=== PATIENT | female | born 1955 | race Caucasian/White ===

== ENCOUNTER → 2018-02-12 15:27 | Outpatient (CLI) | payer MEDICARE, SELFPAY ==
[2018-02-12 15:51] LABS: Add Manual Diff / Slide Review NO; Basophils Percent Auto 0.8 % (0-2); Hematocrit 36.2 % (36-46); Hemoglobin 12.1 g/dL (12.0-16.0); Lymphocytes Percent Auto 18.3 % (25-40); Mean Corpuscular HGB Conc 33.5 % (30-36); Mean Corpuscular Hemoglobin 29.7 PG (26-34); Mean Corpuscular Volume 88.8 fL (80-100); Monocytes Percent Auto 7.4 % (3-14); Neutrophils Absolute Auto 5800 /uL (3000-5900); Neutrophils Percent Auto 72.5 % (50-75); Platelet Count 269 X10^3/uL (150-400); Red Blood Cell Count 4.08 X10^6/uL (4.0-5.2); Red Cell Distribution Width 16.4 % (11.6-14.8)
[2018-02-12 16:02] LABS: Hemoglobin A1C% w Est Avg Glu 7.3 % (4.0-6.0)
[2018-02-12 17:18] LABS: BUN Creatinine Ratio 23.6 (6-22); Blood Urea Nitrogen 33 mg/dL (7-17); Calcium 9.2 mg/dL (8.4-10.2); Carbon Dioxide 28 mmol/L (22-32); Chloride 96 mmol/L (98-107); Estimated Glomerular Filt Rate 37.9 mL/min (>60); Glucose 233 mg/dL (80-110); HEMOLYSIS 16 (0-50); Potassium 4.2 mmol/L (3.4-5.1); Sodium 138 mmol/L (137-145)
[2018-02-12 18:18] LABS: Hep C Virus Ab w/Reflex Quant NEGATIVE s/c (NEGATIVE)
== END ==
PROVIDERS: PCP Internal Medicine; Visit Provider Internal Medicine
DX: M15.0 Primary generalized (osteo)arthritis (principal); E11.9 Type 2 diabetes mellitus without complications
CPT/HCPCS: 36415; 80048; 83036; 85025; 86803

== ENCOUNTER 2018-03-09 15:36 | Emergency (ER) | payer MEDICARE, SELFPAY ==
[2018-03-09 16:03] VITALS: BP 152/71; PULSE 106; RESP 15; TEMP 36.8; O2SAT 95; BMI 52.7
--- NOTE | 2018-03-09 18:47 | ED.FEMALEGU ---
HPI - Female Genitourinary General Chief complaint: Urogenital-Female Stated complaint: UTI Time Seen by Provider: 03/09/18 18:46 Source: patient and family Mode of arrival: ambulatory Limitations: no limitations History of Present Illness HPI Narrative: Patient presents with dysuria, frequency and urgency and states it feels just like prior UTI. She denies fever or chills. She admits to some suprapubic tenderness. She denies any vaginal bleeding or discharge. MD Complaint: dysuria and UTI Onset (ago): hour(s) Female Urogenital Radiation: Non-Radiating Severity: moderate Quality: Aching and Burning Duration: constant Relieving factors: none Exacerbating factors: none Urinary symptoms: Difficulty Urinating, Dysuria and Frequency Patient : No Related Data Home Medications Medication Instructions Recorded Confirmed duloxetine [Cymbalta] 60 mg PO QDAY #0 05/11/12 amlodipine [Norvasc] 10 mg PO QDAY #0 05/21/12 esomeprazole magnesium [Nexium] 40 mg PO QDAY #0 05/21/12 insulin aspart U-100 [Novolog 25 u SQ WITH MEALS #0 05/21/12 Flexpen U-100 Insulin] insulin glargine [Lantus U-100 40 u SQ BID #0 05/21/12 Insulin] lisinopril 40 mg PO QDAY #0 05/21/12 metformin [Glucophage] 500 mg PO BIDCC #0 05/21/12 metoclopramide HCl 10 mg PO TID #0 05/21/12 simvastatin [Zocor] 20 mg PO HS #0 05/21/12 furosemide [Lasix] 80 mg PO QDAY #0 09/18/12 pioglitazone [Actos] PO QDAY #0 05/09/17 Previous Rx's Medication Instructions Recorded Oxycodone/Acetaminophen (Percocet 0 tab PO Q4H PRN #30 11/09/12 5-325 MG Tablet) metronidazole [Flagyl] 500 mg PO BID #14 tab 03/09/18 Review of Systems Review of Systems All systems reviewed & are unremarkable except as noted in HPI and below Constitutional Denies chills, Denies fever(s), Denies lethargy and Denies weakness Eyes Denies change in vision, Denies eye discharge, Denies irritation and Denies loss of vision ENT Ears, Nose, Mouth, and Throat: Denies change in voice, Denies neck pain and Denies sore throat Cardiovascular Denies chest pain, Denies irregular heart rhythm, Denies lightheadedness, Denies palpitations, Denies dyspnea, Denies dyspnea on exertion and Denies orthopnea Respiratory Denies cough, Denies dyspnea, Denies dyspnea on exertion and Denies wheezing Gastrointestinal Gastrointestinal: Denies abdominal pain, Denies change in bowel habits, Denies diarrhea, Denies nausea and Denies vomiting Genitourinary Denies hematuria, Reports dysuria, Denies flank pain, Denies urinary incontinence, Reports urinary hesitancy and Reports urinary urgency Musculoskeletal Denies neck pain Integumentary/Breasts Denies pruritus, Denies erythema, Denies rash and Denies wounds Neurologic Denies confusion, Denies loss of vision and Denies weakness Psychiatric Denies anxiety, Denies confusion, Denies depression, Denies homicidal ideation and Denies suicidal ideation Endocrine Denies palpitations Hematologic/Lymphatic Denies easy bruising Allergic/Immunologic Denies wheezing [facility] Surgical History Status post surgery (05/25/12) Exam Narrative Exam Narrative: GEN: AOx3 and in mild distress EYES: Pupils are equal, round, and reactive to light and accommodation. Extraoccular muscles are intact bilaterally. There is no subconjunctival hemorrhage or exudate. CHEST: Lungs are clear to auscultation bilaterally and free of wheezes, rales, or rhonchi. Heart rate is regular rhythm, there are no murmurs, clicks, rubs, or gallops. There is no chest wall tenderness. ABD: Abdomen is soft and mildly tender in the suprapubic region. There is no guarding or rebound. Bowel sounds are normal in all 4 quadrants. There is no mass or organomegaly. PELVIC: Pelvic exam performed with patient's permission and female nursing bit and shank department supervisor at bedside. Patient had foul odor and discharge consistent with bacterial vaginosis EXT: Full painless ROM of all extremities with no loss of sensation or strength. SKIN: Warm, pink, and dry. No erythema or rash Initial Vital Signs Initial Vital Signs: Vital Signs Temperature 98.2 F 03/09/18 16:03 Pulse Rate 106 H 03/09/18 16:03 Respiratory Rate 15 03/09/18 16:03 Blood Pressure 152/71 H 03/09/18 16:03 Pulse Oximetry 95 03/09/18 16:03 Course Vital Signs - 8 hr 03/09/18 20:29 Pulse Rate 93 H Respiratory Rate 14 Blood Pressure 157/64 H Pulse Oximetry 97 MDM - Female Genitourinary Lab Data Lab Results 03/09/18 Range/Units 19:16 Urine Color Yellow Urine Appearance Clear Urine pH 5.0 (4.5-8.0) Ur Specific [place] 1.010 (1.000-1.035) Urine Protein Negative (Negative) Urine Glucose (UA) Negative (Normal) g/dL Urine Ketones Negative (NEGATIVE) Urine Occult Blood Negative (Negative) Urine Nitrate Negative (Negative) Urine Bilirubin Negative (NEGATIVE) Urine Urobilinogen 0.2 (0.2) E.U./dL Ur Leukocyte Esterase Negative (NEGATIVE) Urine RBC None seen (0-5/HPF) Urine WBC None seen (0-5/HPF) Ur Squamous Epith Cells 0-1 /hpf Urine Bacteria None seen (None) Ur Culture Indicated? Not Reportable Micro UA Comment Not Reportable Discharge Plan Departure Patient Disposition: Home, Self-Care Clinical Impression: Bacterial vaginosis Discharge Date/Time: 03/09/18 20:32 Interventions: ED Discharge Assessment Last Done: 03/09/18 20:29 Instructions: DI for Bacterial Vaginosis Activity Restrictions/Additional Instructions: *You have been diagnosed with [ bacterial vaginosis ] *What to do: *Take medications as directed, your prescriptions have been electronically transmitted to [facility] at your request *Follow up with your primary care provider in 2-3 days, call for an appointment. Let them know you were seen in the Emergency Department and that we ask that you be seen in follow up *Return to ER if you should have any new, worsening or concerning symptoms, such as [increasing pain, fever or chills, nausea, vomiting or other bothersome symptoms ] Prescriptions: New metronidazole [Flagyl] 500 mg tablet 500 mg PO BID Qty: 14 RF: 0 No Action duloxetine [Cymbalta] 60 MG capsule,delayed release(DR/EC) 60 mg PO QDAY Qty: 0 RF: 0 simvastatin [Zocor] 20 MG tablet 20 mg PO HS Qty: 0 RF: 0 metformin [Glucophage] 500 MG tablet 500 mg PO BIDCC Qty: 0 RF: 0 esomeprazole magnesium [Nexium] 40 MG capsule,delayed release(DR/EC) 40 mg PO QDAY Qty: 0 RF: 0 amlodipine [Norvasc] 10 MG tablet 10 mg PO QDAY Qty: 0 RF: 0 lisinopril 40 MG tablet 40 mg PO QDAY Qty: 0 RF: 0 metoclopramide HCl 10 MG tablet 10 mg PO TID Qty: 0 RF: 0 insulin glargine [Lantus U-100 Insulin] 100 UNIT/1 ML solution 40 u SQ BID Qty: 0 RF: 0 insulin aspart U-100 [Novolog Flexpen U-100 Insulin] 100 UNIT/1 ML insulin pen 25 u SQ WITH MEALS Qty: 0 RF: 0 furosemide [Lasix] 80 MG tablet 80 mg PO QDAY Qty: 0 RF: 0 Oxycodone/Acetaminophen (Percocet 5-325 MG Tablet) PO Q4H PRN Qty: 30 RF: 0 pioglitazone [Actos] 30 mg Tablet PO QDAY Qty: 0 RF: 0
[2018-03-09 19:00] VITALS: BP 162/65; PULSE 100; RESP 18; O2SAT 96
--- NOTE | 2018-03-09 19:06 | DI.RAD.S_ITS ---
PROCEDURE: XR ACUTE ABDOMEN SERIES INDICATIONS: Abdominal pain, vomiting TECHNIQUE: One view chest and two views of the abdomen were acquired. COMPARISON: None. FINDINGS: Surgical changes and devices: None. Chest: Lungs are clear. Heart size is mildly prominent. No pleural effusions. No pneumoperitoneum. Abdomen: Bowel gas pattern is normal. Moderate scattered stool. No suspicious calcifications. Visualized solid organ contours appear normal. Bones: No suspicious bony lesions. IMPRESSION: Moderate scattered stool. No obstruction. Dictated by: Angelina Rosen M.D. on 03/09/2018 at 20:19 Approved by: Angelina Rosen M.D. on 03/09/2018 at 20:20
[2018-03-09 19:19] LABS: Bacteria Urine None Seen; RBC Urine None Seen (0-5/HPF); WBC Urine None Seen (0-5/HPF)
[2018-03-09 19:20] LABS: Appearance Urine UA CLEAR; Bilirubin Urine UA NEGATIVE (NEGATIVE); Color Urine UA YELLOW; Glucose Urine UA NEGATIVE (Normal); Ketones Urine UA NEGATIVE (NEGATIVE); Leukocyte Esterase Urine UA NEGATIVE (NEGATIVE); Nitrite Urine UA Negative (Negative); Occult Blood Urine UA NEGATIVE (Negative); Protein Urine UA NEGATIVE (Negative); Urobilinogen Urine UA 0.2 E.U./dL (0.2)
[2018-03-09 19:30] LABS: Squamous Epithelial Cell Urine 0-1 /HPF
[2018-03-09 19:34] VITALS: BP 157/64; PULSE 95; RESP 18; O2SAT 96
[2018-03-09 20:29] VITALS: BP 157/64; PULSE 93; RESP 14; O2SAT 97
--- NOTE | 2018-03-10 04:22 | ED_ITS ---
HPI - Female Genitourinary General Chief complaint: Urogenital-Female Stated complaint: UTI Time Seen by Provider: 03/09/18 18:46 Source: patient and family Mode of arrival: ambulatory Limitations: no limitations History of Present Illness HPI Narrative: Patient presents with dysuria, frequency and urgency and states it feels just like prior UTI. She denies fever or chills. She admits to some suprapubic tenderness. She denies any vaginal bleeding or discharge. MD Complaint: dysuria and UTI Onset (ago): hour(s) Female Urogenital Radiation: Non-Radiating Severity: moderate Quality: Aching and Burning Duration: constant Relieving factors: none Exacerbating factors: none Urinary symptoms: Difficulty Urinating, Dysuria and Frequency Patient : No Related Data Home Medications Medication Instructions Recorded Confirmed duloxetine [Cymbalta] 60 mg PO QDAY #0 05/11/12 amlodipine [Norvasc] 10 mg PO QDAY #0 05/21/12 esomeprazole magnesium [Nexium] 40 mg PO QDAY #0 05/21/12 insulin aspart U-100 [Novolog 25 u SQ WITH MEALS #0 05/21/12 Flexpen U-100 Insulin] insulin glargine [Lantus U-100 40 u SQ BID #0 05/21/12 Insulin] lisinopril 40 mg PO QDAY #0 05/21/12 metformin [Glucophage] 500 mg PO BIDCC #0 05/21/12 metoclopramide HCl 10 mg PO TID #0 05/21/12 simvastatin [Zocor] 20 mg PO HS #0 05/21/12 furosemide [Lasix] 80 mg PO QDAY #0 09/18/12 pioglitazone [Actos] PO QDAY #0 05/09/17 Previous Rx's Medication Instructions Recorded Oxycodone/Acetaminophen (Percocet 0 tab PO Q4H PRN #30 11/09/12 5-325 MG Tablet) metronidazole [Flagyl] 500 mg PO BID #14 tab 03/09/18 Review of Systems Review of Systems All systems reviewed & are unremarkable except as noted in HPI and below Constitutional Denies chills, Denies fever(s), Denies lethargy and Denies weakness Eyes Denies change in vision, Denies eye discharge, Denies irritation and Denies loss of vision ENT Ears, Nose, Mouth, and Throat: Denies change in voice, Denies neck pain and Denies sore throat Cardiovascular Denies chest pain, Denies irregular heart rhythm, Denies lightheadedness, Denies palpitations, Denies dyspnea, Denies dyspnea on exertion and Denies orthopnea Respiratory Denies cough, Denies dyspnea, Denies dyspnea on exertion and Denies wheezing Gastrointestinal Gastrointestinal: Denies abdominal pain, Denies change in bowel habits, Denies diarrhea, Denies nausea and Denies vomiting Genitourinary Denies hematuria, Reports dysuria, Denies flank pain, Denies urinary incontinence, Reports urinary hesitancy and Reports urinary urgency Musculoskeletal Denies neck pain Integumentary/Breasts Denies pruritus, Denies erythema, Denies rash and Denies wounds Neurologic Denies confusion, Denies loss of vision and Denies weakness Psychiatric Denies anxiety, Denies confusion, Denies depression, Denies homicidal ideation and Denies suicidal ideation Endocrine Denies palpitations Hematologic/Lymphatic Denies easy bruising Allergic/Immunologic Denies wheezing [facility] Surgical History Status post surgery (05/25/12) Exam Narrative Exam Narrative: GEN: AOx3 and in mild distress EYES: Pupils are equal, round, and reactive to light and accommodation. Extraoccular muscles are intact bilaterally. There is no subconjunctival hemorrhage or exudate. CHEST: Lungs are clear to auscultation bilaterally and free of wheezes, rales, or rhonchi. Heart rate is regular rhythm, there are no murmurs, clicks, rubs, or gallops. There is no chest wall tenderness. ABD: Abdomen is soft and mildly tender in the suprapubic region. There is no guarding or rebound. Bowel sounds are normal in all 4 quadrants. There is no mass or organomegaly. PELVIC: Pelvic exam performed with patient's permission and female nursing customer support manager at bedside. Patient had foul odor and discharge consistent with bacterial vaginosis EXT: Full painless ROM of all extremities with no loss of sensation or strength. SKIN: Warm, pink, and dry. No erythema or rash Initial Vital Signs Initial Vital Signs: Vital Signs Temperature 98.2 F 03/09/18 16:03 Pulse Rate 106 H 03/09/18 16:03 Respiratory Rate 15 03/09/18 16:03 Blood Pressure 152/71 H 03/09/18 16:03 Pulse Oximetry 95 03/09/18 16:03 Course Vital Signs - 8 hr 03/09/18 20:29 Pulse Rate 93 H Respiratory Rate 14 Blood Pressure 157/64 H Pulse Oximetry 97 MDM - Female Genitourinary Lab Data Lab Results 03/09/18 Range/Units 19:16 Urine Color Yellow Urine Appearance Clear Urine pH 5.0 (4.5-8.0) Ur Specific [place] 1.010 (1.000-1.035) Urine Protein Negative (Negative) Urine Glucose (UA) Negative (Normal) g/dL Urine Ketones Negative (NEGATIVE) Urine Occult Blood Negative (Negative) Urine Nitrate Negative (Negative) Urine Bilirubin Negative (NEGATIVE) Urine Urobilinogen 0.2 (0.2) E.U./dL Ur Leukocyte Esterase Negative (NEGATIVE) Urine RBC None seen (0-5/HPF) Urine WBC None seen (0-5/HPF) Ur Squamous Epith Cells 0-1 /hpf Urine Bacteria None seen (None) Ur Culture Indicated? Not Reportable Micro UA Comment Not Reportable Discharge Plan Departure Patient Disposition: Home, Self-Care Clinical Impression: Bacterial vaginosis Discharge Date/Time: 03/09/18 20:32 Interventions: ED Discharge Assessment Last Done: 03/09/18 20:29 Instructions: DI for Bacterial Vaginosis Activity Restrictions/Additional Instructions: *You have been diagnosed with [ bacterial vaginosis ] *What to do: *Take medications as directed, your prescriptions have been electronically transmitted to [facility] [employer] at your request *Follow up with your primary care provider in 2-3 days, call for an appointment. Let them know you were seen in the Emergency Department and that we ask that you be seen in follow up *Return to ER if you should have any new, worsening or concerning symptoms , such as [increasing pain, fever or chills, nausea, vomiting or other bothersome symptoms ] Prescriptions: New metronidazole [Flagyl] 500 mg tablet 500 mg PO BID Qty: 14 RF: 0 No Action duloxetine [Cymbalta] 60 MG capsule,delayed release(DR/EC) 60 mg PO QDAY Qty: 0 RF: 0 simvastatin [Zocor] 20 MG tablet 20 mg PO HS Qty: 0 RF: 0 metformin [Glucophage] 500 MG tablet 500 mg PO BIDCC Qty: 0 RF: 0 esomeprazole magnesium [Nexium] 40 MG capsule,delayed release(DR/EC) 40 mg PO QDAY Qty: 0 RF: 0 amlodipine [Norvasc] 10 MG tablet 10 mg PO QDAY Qty: 0 RF: 0 lisinopril 40 MG tablet 40 mg PO QDAY Qty: 0 RF: 0 metoclopramide HCl 10 MG tablet 10 mg PO TID Qty: 0 RF: 0 insulin glargine [Lantus U-100 Insulin] 100 UNIT/1 ML solution 40 u SQ BID Qty: 0 RF: 0 insulin aspart U-100 [Novolog Flexpen U-100 Insulin] 100 UNIT/1 ML insulin pen 25 u SQ WITH MEALS Qty: 0 RF: 0 furosemide [Lasix] 80 MG tablet 80 mg PO QDAY Qty: 0 RF: 0 Oxycodone/Acetaminophen (Percocet 5-325 MG Tablet) PO Q4H PRN Qty: 30 RF: 0 pioglitazone [Actos] 30 mg Tablet PO QDAY Qty: 0 RF: 0
== END 2018-03-09 20:32 | disposition home or self-care (01) ==
PROVIDERS: Emergency Provider Emergency Medicine; PCP Internal Medicine
DX: N76.0 Acute vaginitis (principal); B96.89 Other specified bacterial agents as the cause of diseases classified elsewhere
CPT/HCPCS: 74022; 81001; 81003; 99282; 99284

== ENCOUNTER → 2018-09-11 15:02 | Outpatient (CLI) | payer MEDICARE, SELFPAY | PROVIDERS: PCP Internal Medicine; Visit Provider Internal Medicine | DX: M85.851 Other specified disorders of bone density and structure, right thigh (principal); Z78.0 Asymptomatic menopausal state; E11.9 Type 2 diabetes mellitus without complications; Z82.62 Family history of osteoporosis; Z85.43 Personal history of malignant neoplasm of ovary; Z90.722 Acquired absence of ovaries, bilateral; Z87.891 Personal history of nicotine dependence | CPT/HCPCS: 77080 ==